=== PATIENT | female | born 2000 | race Two or more races ===

== ENCOUNTER 2020-09-05 17:20 | Observation (INO) | payer MEDICAID | END 2020-09-05 18:53 | disposition home or self-care (01) | LOC: LDRP 17:20 | PROVIDERS: ADMIT Specialist; ATTEND Specialist | DX: O60.03 Preterm labor without delivery, third trimester (principal); Z3A.30 30 weeks gestation of pregnancy; Z91.81 History of falling | CPT/HCPCS: 59025; 81002; G0378 ==